=== PATIENT | male | born 1950 | race Caucasian/White ===

== ENCOUNTER 2016-05-31 10:23 | Outpatient (CLI) | payer MEDICARE, OTHER | END 2016-05-31 10:24 | disposition home or self-care (01) | DX: I69.959 Hemiplegia and hemiparesis following unspecified cerebrovascular disease affecting unspecified side (principal); I10 Essential (primary) hypertension; E78.5 Hyperlipidemia, unspecified ==

== ENCOUNTER 2017-09-15 07:11 | Outpatient (CLI) | payer MEDICARE, OTHER ==
[2017-09-15 13:01] LABS: BASOPHILS # (AUTO) 0.1 10^3/uL (0.0-0.1); BASOPHILS % (AUTO) 0.6 %; EOSINOPHILS # (AUTO) 0.1 10^3/uL (0.0-0.7); EOSINOPHILS % (AUTO) 1.5 %; HGB - HEMOGLOBIN 15.6 g/dL (14.0-18.0); LYMPHOCYTES # (AUTO) 2.4 10^3/uL (1.5-3.5); LYMPHOCYTES % (AUTO) 30.2 %; MEAN CORPUSCULAR HEMOGLOBIN 32.2 pg (27.0-31.0); MEAN CORPUSCULAR HGB CONC 33.4 g/dL (32.0-36.0); MEAN CORPUSCULAR VOLUME 96.4 fL (80.0-94.0); MEAN PLATELET VOLUME 8.7 fL (7.4-11.4); MONOCYTES # (AUTO) 0.7 10^3/uL (0.0-1.0); MONOCYTES % (AUTO) 8.5 %; NEUTROPHILS # (AUTO) 4.8 10^3/uL (1.5-6.6); NEUTROPHILS % (AUTO) 59.2 %; PLT - PLATELET COUNT 242 10^3/uL (130-450); RED BLOOD COUNT 4.85 10^6/uL (4.70-6.10); RED CELL DISTRIBUTION WIDTH 13.6 % (12.0-15.0); WHITE BLOOD COUNT 8.1 x10^3/uL (4.8-10.8)
[2017-09-15 13:42] LABS: ALBUMIN 3.9 g/dL (3.2-5.5); ALBUMIN/GLOBULIN RATIO 1.3 (1.0-2.2); ALKALINE PHOSPHATASE 40 IU/L (42-121); ALT ALANINE AMINOTRANSFERASE 19 IU/L (10-60); AST ASPARTATE AMINOTRANSFERASE 19 IU/L (10-42); BILIRUBIN,TOTAL 0.5 mg/dL (0.2-1.0); BUN - BLOOD UREA NITROGEN 12 mg/dL (6-20); CALCIUM 8.8 mg/dL (8.5-10.3); CARBON DIOXIDE - CO2 27 mmol/L (21-32); CHLORIDE 102 mmol/L (101-111); CHOL/HDL RATIO 4.4 (<5.0); CHOLESTEROL 179 mg/dL; CREATININE 0.9 mg/dL (0.6-1.2); GFR - MDRD 84 (>89); GLUCOSE 113 mg/dL (70-100); HDL CHOLESTEROL 41 mg/dL; LDL CHOLESTEROL,CALCULATED 108 mg/dL; LDL/HDL RATIO 2.6 (<3.6); SODIUM 135 mmol/L (135-145); VLDL CHOLESTEROL 30 mg/dL
== END 2017-09-15 07:12 | disposition home or self-care (01) ==
LOC: LAB.WCP 07:11
PROVIDERS: ATTEND Family Medicine
DX: I10 Essential (primary) hypertension (principal); E87.5 Hyperkalemia; Z12.5 Encounter for screening for malignant neoplasm of prostate
CPT/HCPCS: 36415; 80053; 80061; 85025; G0103; 83721; 84153

== ENCOUNTER 2018-03-23 07:23 | Outpatient (CLI) | payer MEDICARE, OTHER ==
[2018-03-23 12:47] LABS: CALCIUM 8.9 mg/dL (8.5-10.3); CREATININE 0.9 mg/dL (0.6-1.2)
[2018-03-23 13:07] LABS: PSA FREE 0.63 ng/mL (0.16-2.81)
[2018-03-23 13:08] LABS: PSA TOTAL 3.09 ng/mL (0.000-2.000)
== END 2018-03-23 23:59 | disposition home or self-care (01) ==
LOC: LAB.WCP 07:23
PROVIDERS: ATTEND Family Medicine
DX: R97.20 Elevated prostate specific antigen [PSA] (principal); I10 Essential (primary) hypertension
CPT/HCPCS: 36415; 80048; 84153; 84154

== ENCOUNTER 2018-10-09 07:24 | Outpatient (CLI) | payer MEDICARE, OTHER ==
[2018-10-09 13:35] LABS: ALBUMIN/GLOBULIN RATIO 1.3 (1.0-2.2); ALKALINE PHOSPHATASE 49 IU/L (42-121); ALT ALANINE AMINOTRANSFERASE 13 IU/L (10-60); AST ASPARTATE AMINOTRANSFERASE 15 IU/L (10-42); BILIRUBIN,TOTAL 0.6 mg/dL (0.2-1.0); BUN - BLOOD UREA NITROGEN 13 mg/dL (6-20); CALCIUM 9.1 mg/dL (8.5-10.3); CARBON DIOXIDE - CO2 27 mmol/L (21-32); CHLORIDE 105 mmol/L (101-111); CHOL/HDL RATIO 6.3 (<5.0); CHOLESTEROL 265 mg/dL; CREATININE 0.9 mg/dL (0.6-1.2); GFR - MDRD 84 (>89); GLUCOSE 107 mg/dL (70-100); HDL CHOLESTEROL 42 mg/dL; LDL CHOLESTEROL,CALCULATED 181 mg/dL; LDL/HDL RATIO 4.3 (<3.6); SODIUM 143 mmol/L (135-145); VLDL CHOLESTEROL 42 mg/dL
[2018-10-09 13:40] LABS: BASOPHILS % (AUTO) 0.4 %; EOSINOPHILS # (AUTO) 0.2 10^3/uL (0.0-0.7); EOSINOPHILS % (AUTO) 2.1 %; HGB - HEMOGLOBIN 15.9 g/dL (14.0-18.0); LYMPHOCYTES # (AUTO) 2.5 10^3/uL (1.5-3.5); MEAN CORPUSCULAR HEMOGLOBIN 31.8 pg (27.0-31.0); MEAN CORPUSCULAR HGB CONC 32.9 g/dL (32.0-36.0); MEAN CORPUSCULAR VOLUME 96.8 fL (80.0-94.0); MEAN PLATELET VOLUME 10.2 fL (7.4-11.4); MONOCYTES # (AUTO) 0.8 10^3/uL (0.0-1.0); MONOCYTES % (AUTO) 9.1 %; NEUTROPHILS # (AUTO) 5.4 10^3/uL (1.5-6.6); NEUTROPHILS % (AUTO) 60.1 %; PLT - PLATELET COUNT 243 10^3/uL (130-450); PSA FREE 0.65 ng/mL (0.16-2.81); RED CELL DISTRIBUTION WIDTH 13.1 % (12.0-15.0)
[2018-10-09 13:41] LABS: PSA TOTAL 3.7 ng/mL (0.000-2.000)
== END 2018-10-09 07:25 | disposition home or self-care (01) ==
LOC: LAB.WCP 07:24
PROVIDERS: ATTEND Family Medicine
DX: I69.854 Hemiplegia and hemiparesis following other cerebrovascular disease affecting left non-dominant side (principal); E78.5 Hyperlipidemia, unspecified; R97.20 Elevated prostate specific antigen [PSA]; I10 Essential (primary) hypertension
CPT/HCPCS: 36415; 80053; 80061; 83721; 84153; 84154; 84443; 85025

== ENCOUNTER 2018-11-19 10:01 | Outpatient (CLI) | payer MEDICARE, OTHER ==
--- NOTE | 2018-11-20 | XRAY Report ---
Reason: HYPERTENSION Procedure Date: 11/19/2018 Accession Number: [id number] / [id number] Procedure: XR - Chest 2 View X-Ray CPT Code: 53086 FULL RESULT: EXAM: CHEST RADIOGRAPHY EXAM DATE: 11/19/2018 11:31 AM. CLINICAL HISTORY: HYPERTENSION. Preoperative. COMPARISON: CHEST 1 VIEW 03/07/2013 8:28 AM. TECHNIQUE: 2 views. FINDINGS: Lungs/Pleura: 6 mm dense right upper lobe pulmonary nodule again noted. Right midlung nodule measuring 1.9 cm, appears partially calcified at least. These appear similar to the prior from 2012, suspect calcified nodules. No consolidation, pleural effusion or pneumothorax. Hyperinflated lungs. Mediastinum: Heart and mediastinal contours are unremarkable. IMPRESSION: No acute findings are seen. Chronic findings. See above. RADIA
== END 2018-11-19 10:02 | disposition home or self-care (01) ==
LOC: DI 10:01
PROVIDERS: ATTEND Surgery
DX: Z01.818 Encounter for other preprocedural examination (principal); K40.20 Bilateral inguinal hernia, without obstruction or gangrene, not specified as recurrent
CPT/HCPCS: 71046; 93005

== ENCOUNTER 2018-11-19 10:05 | Outpatient (CLI) | payer MEDICARE, OTHER | END 2018-11-19 10:06 | disposition home or self-care (01) | LOC: RT 10:05 | PROVIDERS: ATTEND Surgery | DX: Z53.9 Procedure and treatment not carried out, unspecified reason (principal) ==

== ENCOUNTER 2018-11-20 08:59 | Day surgery (SDC) | payer MEDICARE, OTHER ==
[~2018-11-20 08:59] MED LIST: CEFAZOLIN SODIUM IN 0.9 % NACL 2 GM/100 ML BAG IV ONE
[2018-11-20] MEDS ORDERED: LACTATED RINGERS 1,000 ML IV ONE ×2 (09:04→12:23)
--- NOTE | 2018-11-20 09:56 | ANESTHESIA ---
Pre-Anesthesia VS, & Labs - Diagnosis B inguinal hernias - Procedure B inguinal hernia repairs Vital Signs: Temp Pulse Resp BP Pulse Ox 36.1 C L 103 H 65 H 152/94 H 94 11/20/18 09:09 11/20/18 09:09 11/20/18 09:09 11/20/18 09:09 11/20/18 09:09 Height 5 ft 8 in Weight (kg) 65 kg Body Mass Index 20.2 - NPO >8 hours Last Fluid Intake: 4oz coffee at 0300 - Lab Results Lab results reviewed: Yes Home Medications and Allergies Home Medications: Ambulatory Orders Amlodipine Besylate 10 mg PO DAILY 11/19/18 Aspirin [Aspirin EC] 81 mg PO DAILY 11/19/18 Clopidogrel Bisulfate [Clopidogrel] 75 mg PO DAILY 11/19/18 EPINEPHrine [Epinephrine] 0.3 mg IJ ONCE PRN 11/19/18 Lisinopril 40 mg PO DAILY 11/19/18 Tamsulosin HCl [Flomax] 0.4 mg PO DAILY 11/19/18 Hydrochlorothiazide 12.5 mg PO DAILY 03/07/13 Metoprolol Tartrate 50 mg PO BID 03/07/13 Pravastatin Sodium 20 mg PO QPM 03/07/13 Amlodipine Besylate 10 mg PO DAILY 11/19/18 Aspirin [Aspirin EC] 81 mg PO DAILY 11/19/18 Clopidogrel Bisulfate [Clopidogrel] 75 mg PO DAILY 11/19/18 EPINEPHrine [Epinephrine] 0.3 mg IJ ONCE PRN 11/19/18 Lisinopril 40 mg PO DAILY 11/19/18 Tamsulosin HCl [Flomax] 0.4 mg PO DAILY 11/19/18 Allergies/Adverse Reactions: Allergies Allergy/AdvReac Type Severity Reaction Status Date / Time venom-honey bee Allergy Anaphylaxis Unverified 11/19/18 12:01 [bee venom (honey bee)] simvastatin AdvReac Cramps Verified 11/19/18 12:02 Anes History & Medical History - Anesthetic History Anesthesia Complications: reports: No previous complications Family history of Anesthesia Complications: Denies Family history of Malignant Hyperthermia: Denies - Medical History Cardiovascular: reports: Hypertension, High cholesterol Pulmonary: reports: None Gastrointestinal: reports: None Urinary: reports: Benign prostate hypertrophy Musculoskeletal: reports: Osteoarthritis Endocrine/Autoimmune: reports: None Blood Disorders: reports: None Skin: reports: Other Smoking Status: Current every day smoker Psychosocial: reports: No issues indicated - Surgical History Eyes Ears Nose Throat (EENT): Cataracts, Other (strabismus at 3 years old) Dermatologic: Skin cancer surgery Results - EKG Results EKG Comparison: Reviewed EKG (SB@55, no ST changes noted) Exam General: Alert, Oriented x3, Cooperative Dental: Poor dentition (several missing, decayed. none loose per pt) Mouth Opening: Greater than 4 Fingerbreadths Neck Mobility: Normal Mallampati classification: I Thyromental Distance: 4-6 cm Respiratory: Lungs clear, Normal breath sounds, No respiratory distress, No accessory muscle use Cardiovascular: Regular rate Neurological: Normal speech Mental/Cognitive Status: Alert/Oriented X3, Normal for patient Cognitive Status: Within normal limits Plan Anesthesia Type: General Consent for Procedure(s) Verified and Reviewed: Yes Code Status: Attempt Resuscitation ASA classification: 2-Mild systemic disease Is this case an emergency?: No
[2018-11-20] MEDS ORDERED: LIDOCAINE MPF 1%-EPI 1:200000 30 ML VIAL ONE (11:01)
[2018-11-20] MEDS ORDERED: ceFAZolin 1 GM VIAL ONE (11:02)
[2018-11-20] MEDS ORDERED: BUPIVACAINE 0.5% PF 10 ML VIAL ONE (11:02)
--- NOTE | 2018-11-20 12:47 | OPERATIVE REPORT ---
Operative Report - General Planned Procedure: Bilateral Inguinal Hernia Repairs Pre-Op Diagnosis: Bilateral Inguinal Hernias Procedure Performed: Bilateral Inguinal Hernia Repairs with PHS mesh implant. Post Op Diagnosis: Bilateral Inguinal Hernias - Procedure Note Primary Surgeon: Karel Anesthesia Provider: DANIEL Duran Anesthesia Technique: General LMA, Local Pathology: None Estimated Blood Loss (mL): 10 Indications: Bilateral painful inguinal hernias Findings: Moderate direct hernia on the left Large pantaloon hernia on the right Complications: none apparent - Other Other Information/Narrative: After obtaining informed consent, the patient is brought to the operating room and placed in the supine position on the operating table. All elements of the perioperative safety checklist were observed.Following successful induction of general anesthesia, the abdomen and groins were prepped and draped in the standard surgical fashion. A timeout was held per NVOAP protocol. We began by performing an ilioinguinal nerve block on the right. This was done by infiltrating a mixture of local anesthetics just medial to the anterior superior iliac spine. We continued by identifying and the convenient site for an incision in the right lower quadrant and anesthetizing this area with local anesthetics as well.An incision was created here and carried down through the skin and subcutaneous tissue. Ranjit's fascia was incised to reveal the fascia of the external oblique aponeurosis. The aponeurosis was opened in the direction of its fibers and the leaves reflected laterally. The ilioinguinal nerve was identified as well as the spermatic cord and associated hernia sac. The hernia sac was carefully freed from the spermatic cord and reduced back into the abdominal cavity. The hernia itself was lateral to the inferior epigastric vessels.An incision was created here and carried down through the skin and subcutaneous tissue. Ranjit's fascia was incised to reveal the fascia of the external oblique aponeurosis. The aponeurosis was opened in the direction of its fibers and the leaves reflected laterally. The ilioinguinal nerve was identified as well as the spermatic cord and associated hernia sac. The hernia sac was carefully freed from the spermatic cord and reduced back into the abdominal cavity. The hernia itself was lateral to the inferior epigastric ve ssels.We elected to repair the defect using a large Prolene hernia system mesh implant. This was soaked in Ancef containing solution and deployed into the defect per top former's directions. The posterior leaflet was straightened and flattened in the preperitoneal space. The overlying leaflet was then tacked to the pubic tubercle. A slit was created in the medial aspect of the overlying leaflet for placement of the spermatic cord. We were careful to be sure there was no traction or constriction of the cord structures<The wound was checked for hemostasis and irrigated with antibiotic solution. The leaflets of the external oblique aponeurosis were then closed with Vicryl suture Ranjit's fascia was closed with Vicryl suture and Monocryl stitches were placed in the skin. We continued the procedure on the left. We began by performing an ilioinguinal nerve block. This was done by infiltrating a mixture of local anesthetics just medial to the anterior superior iliac spine. We continued by identifying and the convenient site for an incision in the left lower quadrant and anesthetizing this area with local anesthetics as well. An incision was created here and carried down through the skin and subcutaneous tissue. Ranjit's fascia was incised to reveal the fascia of the external oblique aponeurosis. The aponeurosis was opened in the direction of its fibers and the leaves reflected laterally. The ilioinguinal nerve was identified as well as the spermatic cord and associated hernia sac. The hernia sac was carefully freed from the spermatic cord and reduced back into the abdominal cavity. The hernia sac was medial to the inferior epigastric vessels. We elected to repair the defect using a large Prolene hernia system mesh implant. This was soaked in Ancef containing solution and deployed into the defect per top former's directions. The posterior leaflet was straightened and flattened in the preperitoneal space. The overlying leaflet was then tacked to the pubic tubercle. A slit was created in the medial aspect of the overlying leaflet for placement of the spermatic cord. We were careful to be sure there was no traction or constriction of the cord structures<The wound was checked for hemostasis and irrigated with antibiotic solution. The leaflets of the external oblique aponeurosis were then closed with Vicryl suture Ranjti's fascia was closed with Vicryl suture and Monocryl stitches were placed in the skin. Both skin incisions were dressed with Dermabond.All sponge, needle, and instrument counts were correct at the conclusion of the case. The patient was allowed awaken from anesthesia without difficulty and taken to the postanesthesia care unit in good condition.
[2018-11-20] MEDS ORDERED: oxyCODONE 5 MG TABLET PO PRN (13:01)
[2018-11-20] MEDS ORDERED: HYDROmorphone 0.5 MG/0.5 ML SYRINGE IVP PRN (13:01)
[2018-11-20] MEDS ORDERED: ONDANSETRON 4 MG/2 ML VIAL IVP PRN (13:01)
[2018-11-20 13:57] VITALS: BP 136/78
== END 2018-11-20 09:00 | disposition home or self-care (01) ==
LOC: SDS 08:59
PROVIDERS: ATTEND Surgery
PROC: 0YUA0JZ Supplement Bilateral Inguinal Region with Synthetic Substitute, Open Approach (ICD-10-PCS; principal; 2018-11-20 10:15)
DX: K40.20 Bilateral inguinal hernia, without obstruction or gangrene, not specified as recurrent (principal); I69.354 Hemiplegia and hemiparesis following cerebral infarction affecting left non-dominant side; I69.391 Dysphagia following cerebral infarction; R13.10 Dysphagia, unspecified; I10 Essential (primary) hypertension; Z79.899 Other long term (current) drug therapy; Z79.82 Long term (current) use of aspirin; Z87.891 Personal history of nicotine dependence
CPT/HCPCS: 49505; C1781; J0690; J7120

== ENCOUNTER 2019-03-28 08:00 | Outpatient (CLI) | payer MEDICARE, OTHER | END 2019-03-28 23:59 | disposition home or self-care (01) | LOC: LAB.WCP 08:00 | PROVIDERS: ATTEND Family Medicine | DX: R97.20 Elevated prostate specific antigen [PSA] (principal) | CPT/HCPCS: 36415; 84153 ==

== ENCOUNTER 2020-03-10 08:00 | Outpatient (CLI) | payer MEDICARE, OTHER ==
[2020-03-10 18:37] LABS: BASOPHILS # (AUTO) 0.1 10^3/uL (0.0-0.1); BASOPHILS % (AUTO) 0.5 %; EOSINOPHILS # (AUTO) 0.2 10^3/uL (0.0-0.7); EOSINOPHILS % (AUTO) 1.6 %; HGB - HEMOGLOBIN 15.6 g/dL (14.0-18.0); LYMPHOCYTES # (AUTO) 2.5 10^3/uL (1.5-3.5); MEAN CORPUSCULAR HGB CONC 31.6 g/dL (32.0-36.0); MEAN PLATELET VOLUME 10.4 fL (7.4-11.4); MONOCYTES # (AUTO) 0.8 10^3/uL (0.0-1.0); MONOCYTES % (AUTO) 8.5 %; NEUTROPHILS # (AUTO) 5.8 10^3/uL (1.5-6.6); PLT - PLATELET COUNT 239 10^3/uL (130-450); RED BLOOD COUNT 5.04 10^6/uL (4.70-6.10); RED CELL DISTRIBUTION WIDTH 12.8 % (12.0-15.0); WHITE BLOOD COUNT 9.3 x10^3/uL (4.8-10.8)
[2020-03-10 18:56] LABS: ALBUMIN 4.1 g/dL (3.2-5.5); ALBUMIN/GLOBULIN RATIO 1.4 (1.0-2.2); ALKALINE PHOSPHATASE 46 IU/L (42-121); ALT ALANINE AMINOTRANSFERASE 14 IU/L (10-60); AST ASPARTATE AMINOTRANSFERASE 14 IU/L (10-42); BILIRUBIN,TOTAL 0.7 mg/dL (0.2-1.0); BUN - BLOOD UREA NITROGEN 17 mg/dL (6-20); CALCIUM 9.4 mg/dL (8.5-10.3); CARBON DIOXIDE - CO2 27 mmol/L (21-32); CHLORIDE 103 mmol/L (101-111); CHOL/HDL RATIO 4.4 (<5.0); CHOLESTEROL 190 mg/dL; CREATININE 0.9 mg/dL (0.6-1.2); GLUCOSE 114 mg/dL (70-100); HDL CHOLESTEROL 43 mg/dL; LDL CHOLESTEROL,CALCULATED 120 mg/dL; LDL/HDL RATIO 2.8 (<3.6); SODIUM 141 mmol/L (135-145); VLDL CHOLESTEROL 27 mg/dL
== END 2020-03-10 23:59 | disposition home or self-care (01) ==
LOC: LAB.WCP 08:00
PROVIDERS: ATTEND Nurse Practitioner Family
DX: E78.5 Hyperlipidemia, unspecified (principal); I10 Essential (primary) hypertension
CPT/HCPCS: 36415; 80053; 80061; 83721; 84443; 85025

== ENCOUNTER 2020-06-08 16:39 | Emergency (ER) | payer MEDICARE, OTHER ==
[2020-06-08] MEDS ORDERED: KETOROLAC 30 MG/ML VIAL IVP STA (17:08)
[2020-06-08 17:22] LABS: BASOPHILS # (AUTO) 0.1 10^3/uL (0.0-0.1); BASOPHILS % (AUTO) 0.4 %; EOSINOPHILS # (AUTO) 0.1 10^3/uL (0.0-0.7); EOSINOPHILS % (AUTO) 0.7 %; HCT - HEMATOCRIT 49.2 % (42.0-52.0); HGB - HEMOGLOBIN 16.4 g/dL (14.0-18.0); LYMPHOCYTES # (AUTO) 2.4 10^3/uL (1.5-3.5); LYMPHOCYTES % (AUTO) 17.6 %; MEAN CORPUSCULAR HEMOGLOBIN 31.3 pg (27.0-31.0); MEAN CORPUSCULAR HGB CONC 33.3 g/dL (32.0-36.0); MEAN CORPUSCULAR VOLUME 93.9 fL (80.0-94.0); MONOCYTES # (AUTO) 1.1 10^3/uL (0.0-1.0); MONOCYTES % (AUTO) 7.8 %; NEUTROPHILS # (AUTO) 9.8 10^3/uL (1.5-6.6); NEUTROPHILS % (AUTO) 73.1 %; PLT - PLATELET COUNT 285 10^3/uL (130-450); RED BLOOD COUNT 5.24 10^6/uL (4.70-6.10); RED CELL DISTRIBUTION WIDTH 12.4 % (12.0-15.0); WHITE BLOOD COUNT 13.4 x10^3/uL (4.8-10.8)
[2020-06-08 17:38] LABS: ALBUMIN/GLOBULIN RATIO 1.1 (1.0-2.2); BILIRUBIN,TOTAL 0.4 mg/dL (0.2-1.0); POTASSIUM 3.5 mmol/L (3.5-5.0); TOTAL PROTEIN 7.6 g/dL (6.7-8.2)
--- NOTE | 2020-06-08 17:46 | ED Physician Documentation ---
History of Present Illness - Stated complaint Stated Complaint: LT SHOULDER PAIN - Chief complaint Chief Complaint: General - History obtained from History obtained from: Patient - History of Present Illness Timing: Today Pain level max: 5 Pain level now: 5 - Additonal information Additional information: 70-year-old male with a history of a left-sided CVA and residual left-sided deficits states that he has been working in the yard lately. Developed left- sided chest/shoulder pain 2 to 3 days ago. Has been constant since that time. He states it feels like a muscle spasm. Nothing really makes it better or worse. No shortness of breath. No vomiting. No headache. No trauma. Patient points to the L side of the chest wall as the site of his pain, near the L axilla. Review of Systems Ten Systems: 10 systems reviewed and negative Constitutional: denies: Fever, Chills Ears: denies: Ear pain Nose: denies: Rhinorrhea / runny nose, Congestion Respiratory: denies: Cough GI: denies: Nausea, Vomiting, Diarrhea Skin: denies: Rash Musculoskeletal: denies: Neck pain, Back pain Neurologic: denies: Focal weakness, Numbness, Headache PD PAST MEDICAL HISTORY - Past Medical History Past Medical History: Yes Cardiovascular: Hypertension Endocrine/Autoimmune: None GI: None : None HEENT: Other Psych: None Musculoskeletal: None Derm: Other - Past Surgical History Past Surgical History: Yes HEENT: Cataracts, Other - Present Medications Home Medications: Ambulatory Orders Medication Instructions Recorded Confirmed Hydrochlorothiazide 12.5 mg PO DAILY 03/07/13 06/08/20 Metoprolol Tartrate 50 mg PO BID 03/07/13 06/08/20 Pravastatin Sodium 20 mg PO QPM 03/07/13 06/08/20 Amlodipine Besylate 10 mg PO DAILY 11/19/18 06/08/20 Aspirin [Aspirin EC] 81 mg PO DAILY 11/19/18 06/08/20 Clopidogrel Bisulfate [Clopidogrel] 75 mg PO DAILY 11/19/18 06/08/20 EPINEPHrine [Epinephrine] 0.3 mg IJ ONCE PRN 11/19/18 06/08/20 Tamsulosin HCl [Flomax] 0.4 mg PO DAILY 11/19/18 06/08/20 lisinopriL [Lisinopril] 40 mg PO DAILY 11/19/18 06/08/20 Ondansetron Odt [Zofran] 4 mg TL Q6H PRN #10 tablet 11/20/18 06/08/20 HYDROcod/ACETAM 5/325 [[place]atfield 5/325] 1 - 2 ea PO Q6H PRN #14 tablet 06/08/20 Valacyclovir HCl [Valtrex] 1,000 mg PO TID #21 tablet 06/08/20 - Allergies Allergies/Adverse Reactions: Allergies Allergy/AdvReac Type Severity Reaction Status Date / Time venom-honey bee Allergy Anaphylaxis Unverified 06/08/20 16:47 [bee venom (honey bee)] simvastatin AdvReac Cramps Verified 06/08/20 16:47 - Social History Does the pt smoke?: Yes Smoking Status: Current every day smoker Does the pt drink ETOH?: Yes Does the pt have substance abuse?: No PD ED PE NORMAL - Vitals Vital signs reviewed: Yes - General General: Alert and oriented X 3, No acute distress, Well developed/nourished - HEENT HEENT: PERRL, Moist mucous membranes - Neck Neck: Supple, no meningeal sign - Cardiac Cardiac: RRR, Strong equal pulses - Respiratory Respiratory: No respiratory distress, Clear bilaterally - Abdomen Abdomen: Soft, Non tender, Non distended - Derm Derm: Warm and dry, Other (faint rash to the L upper back, dermatomal) - Extremities Extremities: Other (L shoulder - normal ROM. no pain. NVI. No rib cage tenderness. No rash. no swelling. ) - Neuro Neuro: Alert and oriented X 3 - Psych Psych: Normal mood, Normal affect Results - Vitals Vitals: Vital Signs - 24 hr 06/08/20 06/08/20 06/08/20 16:44 18:08 18:25 Temperature 36.7 C Heart Rate 105 H 106 H 101 H Respiratory 20 16 16 Rate Blood Pressure 156/98 H 132/93 H 135/86 H O2 Saturation 99 97 98 Oxygen O2 Source Room air - EKG (time done) 1731 Rate: Rate (enter#) (100) Rhythm: Sinus tachycardia Baker: Normal Intervals: Normal DE QRS: Normal Ischemia: Normal ST segments - Labs Labs: Laboratory Tests 06/08/20 06/08/20 06/08/20 17:15 17:15 17:15 WBC 13.4 H RBC 5.24 Hgb 16.4 Hct 49.2 MCV 93.9 MCH 31.3 H MCHC 33.3 RDW 12.4 Plt Count 285 MPV 9.0 Neut # (Auto) 9.8 H Lymph # (Auto) 2.4 [place] # (Auto) 1.1 H Eos # (Auto) 0.1 Baso # (Auto) 0.1 Absolute Nucleated RBC 0.00 Nucleated RBC % 0.0 Sodium 134 L Potassium 3.5 Chloride 98 L Carbon Dioxide 24 Anion Gap 12.0 BUN 15 Creatinine 1.0 Estimated GFR (MDRD) 74 L Glucose 131 H Calcium 9.0 Total Bilirubin 0.4 AST 16 ALT 12 Alkaline Phosphatase 62 Troponin I High Sens 4.7 Total Protein 7.6 Albumin 4.0 Globulin 3.6 Albumin/Globulin Ratio 1.1 Lipase 90 H - Rads (name of study) cxr Radiology: Prelim report reviewed, EMP read contemporaneously, See rad report (No acute findings) L shoulder xray Radiology: Prelim report reviewed, EMP read contemporaneously, See rad report (No acute findings) PD MEDICAL DECISION MAKING - ED course Complexity details: reviewed results, re-evaluated patient, considered differential (No ST elevation FL, no aortic dissection, no PE, no tension pneumothorax, no aortic aneurysm), d/w patient ED course: 70-year-old male presents to the emergency department today with left lateral chest wall discomfort and upper back discomfort. Described as shoulder pain but no pain with range of motion of the shoulder. Does have a light rash. Possible shingles? No evidence of acute coronary syndrome. No PE. We will place on valacyclovir and have him follow-up with his doctor. Placed on pain medication as well. Patient counseled regarding signs and symptoms for which I believe and urgent re-evaluation would be necessary. Patient with good understanding of and agreement to plan and is comfortable going home at this time This document was made in part using voice recognition software. While efforts are made to proofread this document, sound alike and grammatical errors may occur. Departure - Departure Disposition: 01 Home, Self Care Clinical Impression: Chest wall pain Shingles Qualifiers: Herpes zoster complications: without complications Qualified Code(s): B02.9 - Zoster without complications Condition: Good Instructions: ED Shingles Follow-Up: TORY KERR, MSN, FRANCHISE BROKER [Primary Care Provider] - Within 1 week Prescriptions: HYDROcod/ACETAM 5/325 [[place]field 5/325] 1 - 2 ea PO Q6H PRN #14 tablet PRN Reason: Pain Valacyclovir HCl [Valtrex] 1,000 mg PO TID #21 tablet Comments: Your symptoms today are concerning for possible shingles. We will start you on an antiviral medication. We will also prescribe pain medication for you. Follow-up with your doctor for further care. Return if you worsen. Do not drink alcohol or drive while on narcotic pain medicine. Note that many narcotic pain relievers also contain tylenol/acetaminophen. Please ensure that your total dose of acetaminophen from all sources does not exceed 3 grams (3000mg) per day. You may constipated on this medication, take a stool softener such as "Colace" twice a day while you are on it. Also recommend a zdyj-rfi-dihirfm laxative such as senna or MiraLAX any day that you do not have a bowel movement. If you received narcotic pain medication in the emergency department, do not drive or operate machinery for the next 24 hours. Discharge Date/Time: 06/08/20 18:25
--- NOTE | 2020-06-08 17:48 | XRAY Report ---
PROCEDURE: Chest 1 View X-Ray INDICATIONS: Chest Pain TECHNIQUE: One view of the chest was acquired. COMPARISON: CXR 11/19/2018, 03/07/2013. CT KUB 02/08/2016. FINDINGS: The patient is rotated. Surgical changes and devices: None. Lungs and pleura: No pleural effusions or pneumothorax. No consolidation. Nodular opacity in the rig ht midlung field appears stable compared to 2013. Prominent pulmonary markings. Emphysematous change. Mediastinum: Mediastinal contours appear normal. Heart size is normal. Bones and chest wall: No suspicious bony lesions. Overlying soft tissues appear unremarkable. IMPRESSION: No consolidation or definite acute cardiopulmonary abnormality. Stable nodular opacity in the right midlung field since 2012 suggesting a benign etiology. Emphysematous change. Reviewed by: Garcia Flowers MD on 06/08/2020 4:47 PM MEGAN Approved by: Garcia Flowers MD on 06/08/2020 4:47 PM [id number] Station ID: [id number]
--- NOTE | 2020-06-08 17:48 | XRAY Report ---
PROCEDURE: Shoulder 3 View LT INDICATIONS: L shoulder pain TECHNIQUE: 3 views of the shoulder were acquired. COMPARISON: None. FINDINGS: Bones: No fractures or dislocations. Mild acromioclavicular joint osteoarthritis and moderate glenoh umeral joint osteoarthritis is seen. No suspicious bony lesions. Visualized ribs appear intact. Soft tissues: No suspicious soft tissue calcifications. IMPRESSION: Mild to moderate left shoulder joint osteophyte is. No fracture or dislocation. Reviewed by: Nehemias Mcfadden MD on 06/08/2020 5:47 PM PDT Approved by: Nehemias Mcfadden MD on 06/08/2020 5:47 PM PDT Station ID: [id number]
[2020-06-08] MEDS ORDERED: HYDROcod/ACETAM 5/325 MG TABLET PO STA (18:18)
[2020-06-08] MEDS ORDERED: valACYclovir 500 MG TABLET PO STA (18:18)
[2020-06-08 18:33] VITALS: BP 135/86
== END 2020-06-08 18:25 | disposition home or self-care (01) ==
LOC: ED 16:39
DX: R07.89 Other chest pain (principal); B02.9 Zoster without complications; I10 Essential (primary) hypertension; F17.200 Nicotine dependence, unspecified, uncomplicated; R00.0 Tachycardia, unspecified
CPT/HCPCS: 36415; 71045; 73030; 80053; 83690; 84484; 85025; 93005; 96374; 99284; A9270

== ENCOUNTER 2020-06-16 11:42 | Outpatient (CLI) | payer MEDICARE, OTHER ==
--- NOTE | 2020-06-16 12:40 | XRAY Report ---
PROCEDURE: Lumbar Spine Complete INDICATIONS: LUMBAR RADIULOPATHY, LEFT TECHNIQUE: 5 views of the lumbar spine were acquired. COMPARISON: None FINDINGS: Bones: 5 [id number] vertebrae are present. There is there is trace retrolisthesis of L2 on L3, L3 on L4. Moderate to severe multilevel disc space narrowing is present most notable from L3-4 throu gh L5-S1. Severe foraminal narrowing is noted L5-S1, L4-5 and L3-4.. No vertebral body compression f ractures. No suspicious bony lesions. Soft tissues: Overlying bowel gas pattern is normal. No suspicious soft tissue calcifications. IMPRESSION: Multilevel degenerative changes most notable from L3-4 through L5-S1. As clinically jessica cated, further evaluation with MRI may be obtained. Reviewed by: Ninfa Leiva MD on 06/16/2020 12:39 PM PDT Approved by: Ninfa Leiva MD on 06/16/2020 12:39 PM PDT Station ID: [id number]
== END 2020-06-16 11:43 | disposition home or self-care (01) ==
LOC: DI.N 11:42
PROVIDERS: ATTEND Family Medicine
DX: M43.16 Spondylolisthesis, lumbar region (principal); M51.36 Other intervertebral disc degeneration, lumbar region; M48.061 Spinal stenosis, lumbar region without neurogenic claudication; M51.37 Other intervertebral disc degeneration, lumbosacral region; M48.07 Spinal stenosis, lumbosacral region

== ENCOUNTER 2020-07-09 08:53 | Emergency (ER) | payer MEDICARE, OTHER ==
--- OUTSIDE RECORDS SUMMARY | 2020-07-09 08:57 | EXTERNAL MEDICAL SUMMARY RPT | Continuity of Care Document ---
:1950 Demographics Phone Unavailable Preferred Language Unknown Marital Status Unknown L[employer] Affiliation Unknown Race Unknown Ethnic Group Unknown Author Organization [facility] Address [address] [place] [address] Phone Social History date description facility [phone]
--- OUTSIDE RECORDS SUMMARY | 2020-07-09 09:02 | EXTERNAL MEDICAL SUMMARY RPT | Continuity of Care Document ---
:1950 Demographics Phone Unavailable Preferred Language Unknown Marital Status Unknown Restoration Affiliation Unknown Race Unknown Ethnic Group Unknown Author Organization [facility] Address [address] [place] [address] Phone Social History date description facility [phone]
--- NOTE | 2020-07-09 09:04 | ED Physician Documentation ---
History of Present Illness - Stated complaint Stated Complaint: LT SIDE PX - History obtained from History obtained from: Patient - Additonal information Additional information: 70-year-old gentleman with history of CVA with left-sided deficits has been having back issues and trouble with the left leg for 6 months. He had an x-ray of the lumbar spine a few weeks ago demonstrating multilevel degenerative changes most notable from L3-4 through L5-S1. Yesterday he went to [place] and had to go up and down a very steep driveway and now has severe left thigh pain. There is no specific injury. PD PAST MEDICAL HISTORY - Past Medical History Cardiovascular: Hypertension Endocrine/Autoimmune: None GI: None : None HEENT: Other Psych: None Musculoskeletal: None Derm: Other - Past Surgical History Past Surgical History: Yes HEENT: Cataracts, Other - Present Medications Home Medications: Ambulatory Orders Medication Instructions Recorded Confirmed Hydrochlorothiazide 12.5 mg PO DAILY 03/07/13 07/09/20 Metoprolol Tartrate 50 mg PO DAILY 03/07/13 07/09/20 Pravastatin Sodium 20 mg PO QPM 03/07/13 07/09/20 Amlodipine Besylate 10 mg PO DAILY 11/19/18 07/09/20 Aspirin [Aspirin EC] 81 mg PO DAILY 11/19/18 07/09/20 Clopidogrel Bisulfate [Clopidogrel] 75 mg PO DAILY 11/19/18 07/09/20 EPINEPHrine [Epinephrine] 0.3 mg IJ ONCE PRN 11/19/18 07/09/20 Tamsulosin HCl [Flomax] 0.4 mg PO DAILY 11/19/18 07/09/20 lisinopriL [Lisinopril] 40 mg PO DAILY 11/19/18 07/09/20 HYDROcod/ACETAM 5/325 [[place] 5/325] 1 - 2 ea PO Q6H PRN #14 tablet 06/08/20 07/09/20 Gabapentin [Neurontin] 300 mg PO TID #60 cap 07/09/20 predniSONE [Deltasone] 20 mg PO [id number] #21 tab 07/09/20 - Allergies Allergies/Adverse Reactions: Allergies Allergy/AdvReac Type Severity Reaction Status Date / Time venom-honey bee Allergy Anaphylaxis Verified 07/09/20 09:19 [bee venom (honey bee)] simvastatin AdvReac Cramps Verified 07/09/20 09:19 - Social History Does the pt smoke?: Yes Smoking Status: Current every day smoker Does the pt drink ETOH?: Yes Does the pt have substance abuse?: No PD ED PE NORMAL - Vitals Vital signs reviewed: Yes - General General: Alert and oriented X 3, No acute distress - Back Back: No spinal TTP - Extremities Extremities: No deformity, No tenderness to palpate, Normal ROM s pain, Other (No visible abnormality of the left thigh, its not tender. Full range of motion of the hip and the knee. Pedal pulses on the left are diminished but palpable and his legs are symmetrically warm with good cap refill. He has normal flexion and extension at both ankles and knees. ) - Neuro Neuro: Alert and oriented X 3, Normal speech Results - Vitals Vitals: Vital Signs - 24 hr 07/09/20 07/09/20 08:53 09:30 Temperature 36.6 C Heart Rate 110 H 98 Respiratory 16 16 Rate Blood Pressure 140/97 H 141/85 H O2 Saturation 97 95 Oxygen O2 Source Room air - Labs Labs: Laboratory Tests 07/09/20 07/09/20 09:29 09:29 WBC 12.5 H RBC 4.89 Hgb 15.4 Hct 45.1 MCV 92.2 MCH 31.5 H MCHC 34.1 RDW 13.2 Plt Count 277 MPV 9.0 Neut # (Auto) 10.1 H Lymph # (Auto) 1.5 [place] # (Auto) 0.8 Eos # (Auto) 0.0 Baso # (Auto) 0.1 Absolute Nucleated RBC 0.00 Nucleated RBC % 0.0 Sodium 139 Potassium 3.4 L Chloride 106 Carbon Dioxide 22 Anion Gap 11.0 BUN 16 Creatinine 0.9 Estimated GFR (MDRD) 83 L Glucose 138 H Calcium 9.2 PD MEDICAL DECISION MAKING - ED course ED course: 70-year-old gentleman with subacute to chronic left leg pain, most likely to be referred radicular pain given outpatient testing. That said vascular disease is considered, DVT ultrasound is negative, he has pedal pulses albeit he seems to have some level of peripheral vascular disease but the exam is not consistent with ischemic leg disease, nor is the distribution of his pain being in the thigh only. An x-ray was done to rule out occult malignancy in the bone but x- ray is negative for same. Departure - Departure Disposition: 01 Home, Self Care Clinical Impression: Pain in extremity Qualifiers: Extremity pain location: lower extremity Laterality: left Qualified Code(s): M79.605 - Pain in left leg Condition: Good Record reviewed to determine appropriate education?: Yes Instructions: ED Sciatica Prescriptions: predniSONE [Deltasone] 20 mg PO [id number] #21 tab Gabapentin [Neurontin] 300 mg PO TID #60 cap Comments: Discussed, the testing so far including the recent x-ray, negative ultrasound for blood clots and negative femur x-ray today to me suggest that the pain is most likely referred from a pinched nerve in your back. The gabapentin and prednisone should help with this. Follow-up with Dr. Damon, consider MRI of the lumbar spine. Return if worsening. Do not drink or drive while taking gabapentin.
[2020-07-09 09:35] LABS: BASOPHILS # (AUTO) 0.1 10^3/uL (0.0-0.1); BASOPHILS % (AUTO) 0.4 %; EOSINOPHILS % (AUTO) 0.2 %; HCT - HEMATOCRIT 45.1 % (42.0-52.0); HGB - HEMOGLOBIN 15.4 g/dL (14.0-18.0); LYMPHOCYTES # (AUTO) 1.5 10^3/uL (1.5-3.5); LYMPHOCYTES % (AUTO) 11.7 %; MEAN CORPUSCULAR HEMOGLOBIN 31.5 pg (27.0-31.0); MEAN CORPUSCULAR HGB CONC 34.1 g/dL (32.0-36.0); MEAN CORPUSCULAR VOLUME 92.2 fL (80.0-94.0); MONOCYTES # (AUTO) 0.8 10^3/uL (0.0-1.0); MONOCYTES % (AUTO) 6.3 %; NEUTROPHILS # (AUTO) 10.1 10^3/uL (1.5-6.6); NEUTROPHILS % (AUTO) 81.2 %; PLT - PLATELET COUNT 277 10^3/uL (130-450); RED BLOOD COUNT 4.89 10^6/uL (4.70-6.10); RED CELL DISTRIBUTION WIDTH 13.2 % (12.0-15.0); WHITE BLOOD COUNT 12.5 x10^3/uL (4.8-10.8)
--- NOTE | 2020-07-09 09:41 | XRAY Report ---
PROCEDURE: Femur 2V LT INDICATIONS: thigh pain TECHNIQUE: 2 views of the femur were acquired. COMPARISON: None. FINDINGS: Bones: No fractures or dislocations. No suspicious bony lesions. Soft tissues: No suspicious soft tissue calcifications or masses. Atherosclerotic calcifications not ed in the left lower extremity. IMPRESSION: No fracture. No acute osseous lesion. If there persistent symptoms or continued clinical concern for pathology, then repeat plain film radiographs (7-10 days) or advanced imaging (CT, MR, bone scan) karen uld be considered for further evaluation. Reviewed by: Gloria Mathew MD, PhD on 07/09/2020 9:39 AM PDT Approved by: Gloria Mathew MD, PhD on 07/09/2020 9:39 AM PDT Station ID: [id number]
[2020-07-09 09:43] LABS: CALCIUM 9.2 mg/dL (8.5-10.3); CREATININE 0.9 mg/dL (0.6-1.2); POTASSIUM 3.4 mmol/L (3.5-5.0)
[2020-07-09 10:02] VITALS: BP 134/90
--- NOTE | 2020-07-09 10:12 | Ultrasound Report ---
PROCEDURE: Duplex Ext Veins Left INDICATIONS: leg pain TECHNIQUE: Real-time imaging, as well as color and pulse Doppler interrogation, were performed of the lower extr emity deep veins from the inguinal ligament to the popliteal fossa. COMPARISON: None. FINDINGS: The deep veins are normally compressible, and free of intraluminal thrombus. Color and pu lse Doppler demonstrate normal phasic intraluminal flow. There is normal augmentation response to di stal compression maneuver. IMPRESSION: No evidence of DVT in visualized left lower extremity veins. Reviewed by: Nehemias Mcfadden MD on 07/09/2020 9:11 AM MEGAN Approved by: Nehemias Mcfadden MD on 07/09/2020 9:11 AM MEGAN Station ID: [id number]
== END 2020-07-09 10:15 | disposition home or self-care (01) ==
LOC: ED 08:53
DX: M79.605 Pain in left leg (principal); M47.817 Spondylosis without myelopathy or radiculopathy, lumbosacral region; I69.954 Hemiplegia and hemiparesis following unspecified cerebrovascular disease affecting left non-dominant side; I10 Essential (primary) hypertension; F17.200 Nicotine dependence, unspecified, uncomplicated; Z79.82 Long term (current) use of aspirin
CPT/HCPCS: 36415; 80048; 85025; 99281; 99284

== ENCOUNTER 2020-07-15 16:43 | Outpatient (CLI) | payer MEDICARE, OTHER | END 2020-07-15 16:44 | disposition critical access hospital (66) | LOC: EMS 16:43 | DX: R29.91 Unspecified symptoms and signs involving the musculoskeletal system (principal); M54.5 Low back pain | CPT/HCPCS: A0425; A0429 ==

== ENCOUNTER 2020-07-15 17:07 | Emergency (ER) | payer MEDICARE, OTHER ==
--- NOTE | 2020-07-15 17:36 | ED Physician Documentation ---
History of Present Illness - Stated complaint Stated Complaint: UNABLE TO WALK - Chief complaint Chief Complaint: Neuro - History obtained from History obtained from: Patient - History of Present Illness Timing: How many weeks ago (1) Pain level max: 1 Pain level now: 1 - Additonal information Additional information: Patient is a 70-year-old male who presents to the emergency department stating that he has been unable to walk on the left leg for the past week due to numbness. Is having loss of bladder control as well. No loss of bowel control. Does not recall any injury. He states he had recent x-rays of his lumbar spine that showed degenerative disc disease. Nothing makes this better or worse. He is currently utilizing a wheelchair. Has never been in a wheelchair before. Does have a history of a stroke to the [place] radiata several years ago. No fevers. No chills. Review of Systems Ten Systems: 10 systems reviewed and negative Constitutional: denies: Fever, Chills Ears: denies: Ear pain Nose: denies: Rhinorrhea / runny nose, Congestion Respiratory: denies: Cough GI: denies: Nausea, Vomiting, Diarrhea : reports: Incontinent Skin: denies: Rash Musculoskeletal: reports: Back pain (mild low back). denies: Neck pain Neurologic: denies: Headache PD PAST MEDICAL HISTORY - Past Medical History Cardiovascular: Hypertension Neuro: CVA Endocrine/Autoimmune: None GI: None : None HEENT: Other Psych: None Musculoskeletal: None Derm: Other - Past Surgical History Past Surgical History: Yes HEENT: Cataracts, Other - Present Medications Home Medications: Ambulatory Orders Medication Instructions Recorded Confirmed Hydrochlorothiazide 12.5 mg PO DAILY 03/07/13 07/09/20 Metoprolol Tartrate 50 mg PO DAILY 03/07/13 07/09/20 Pravastatin Sodium 20 mg PO QPM 03/07/13 07/09/20 Amlodipine Besylate 10 mg PO DAILY 11/19/18 07/09/20 Aspirin [Aspirin EC] 81 mg PO DAILY 11/19/18 07/09/20 Clopidogrel Bisulfate [Clopidogrel] 75 mg PO DAILY 11/19/18 07/09/20 EPINEPHrine [Epinephrine] 0.3 mg IJ ONCE PRN 11/19/18 07/09/20 Tamsulosin HCl [Flomax] 0.4 mg PO DAILY 11/19/18 07/09/20 lisinopriL [Lisinopril] 40 mg PO DAILY 11/19/18 07/09/20 HYDROcod/ACETAM 5/325 [[place] 5/325] 1 - 2 ea PO Q6H PRN #14 tablet 06/08/20 07/09/20 Gabapentin [Neurontin] 300 mg PO TID #60 cap 07/09/20 predniSONE [Deltasone] 20 mg PO [id number] #21 tab 07/09/20 - Allergies Allergies/Adverse Reactions: Allergies Allergy/AdvReac Type Severity Reaction Status Date / Time venom-honey bee Allergy Anaphylaxis Verified 07/15/20 17:15 [bee venom (honey bee)] simvastatin AdvReac Cramps Verified 07/15/20 17:15 - Social History Does the pt smoke?: Yes Smoking Status: Current every day smoker Does the pt drink ETOH?: Yes Does the pt have substance abuse?: No PD ED PE NORMAL - Vitals Vital signs reviewed: Yes - General General: Alert and oriented X 3, No acute distress - HEENT HEENT: Moist mucous membranes - Neck Neck: Supple, no meningeal sign - Cardiac Cardiac: RRR, Strong equal pulses - Respiratory Respiratory: No respiratory distress, Clear bilaterally - Abdomen Abdomen: Soft, Non tender, Non distended, Other (palpable bladder) - Rectal Rectal: Other (normal rectal tone. no saddle anesthesia) - Back Back: No spinal TTP (No midline tenderness to palpation or percussion. No step- off or deformity) - Derm Derm: Warm and dry - Extremities Extremities: Other (Decreased sensation along the entirety of the left lower extremity. 3 out of 5 strength. Right lower extremity is normal. 2+ pulses B. ) - Neuro Neuro: Alert and oriented X 3 - Psych Psych: Normal mood, Normal affect Results - Vitals Vitals: Vital Signs - 24 hr 07/15/20 07/15/20 17:17 18:20 Temperature 37.2 C Heart Rate 87 86 Respiratory 16 16 Rate Blood Pressure 140/98 H 132/70 H O2 Saturation 94 99 Oxygen O2 Source Room air - Labs Labs: Laboratory Tests 07/15/20 07/15/20 07/15/20 17:33 17:36 17:36 WBC 19.6 H RBC 4.79 Hgb 15.2 Hct 45.0 MCV 93.9 MCH 31.7 H MCHC 33.8 RDW 13.5 Plt Count 279 MPV 9.8 Neut # (Auto) Not Reportable Lymph # (Auto) Not Reportable [place] # (Auto) Not Reportable Eos # (Auto) Not Reportable Baso # (Auto) Not Reportable Absolute Nucleated RBC Not Reportable Total Counted 100 Band Neuts % (Manual) 0 Abnorm Lymph % (Manual) 0 Nucleated RBC % Not Reportable Neutrophils # (Manual) 16.9 H Lymphocytes # (Manual) 1.2 L Monocytes # (Manual) 1.6 H Eosinophils # (Manual) 0.0 Basophils # (Manual) 0.0 Differential Comment MANUAL DIFFERENTIAL WBC Morphology NORMAL APPEARANCE Platelet Estimate NORMAL (130-450,000) Platelet Morphology NORMAL APPEARANCE RBC Morph Micro Appear NORMAL APPEARANCE ESR 4 Sodium Potassium Chloride Carbon Dioxide Anion Gap BUN Creatinine Estimated GFR (MDRD) Glucose Calcium Total Bilirubin AST ALT Alkaline Phosphatase C-Reactive Protein Total Protein Albumin Globulin Albumin/Globulin Ratio Urine Color YELLOW Urine Clarity CLEAR Urine pH 5.5 Ur Specific [place] 1.025 Urine Protein NEGATIVE Urine Glucose (UA) NEGATIVE Urine Ketones NEGATIVE Urine Occult Blood NEGATIVE Urine Nitrite NEGATIVE Urine Bilirubin NEGATIVE Urine Urobilinogen 0.2 (NORMAL) Ur Leukocyte Esterase NEGATIVE Ur Microscopic Review NOT INDICATED Urine Culture Comments NOT INDICATED 07/15/20 17:36 WBC RBC Hgb Hct MCV MCH MCHC RDW Plt Count MPV Neut # (Auto) Lymph # (Auto) [place] # (Auto) Eos # (Auto) Baso # (Auto) Absolute Nucleated RBC Total Counted Band Neuts % (Manual) Abnorm Lymph % (Manual) Nucleated RBC % Neutrophils # (Manual) Lymphocytes # (Manual) Monocytes # (Manual) Eosinophils # (Manual) Basophils # (Manual) Differential Comment WBC Morphology Platelet Estimate Platelet Morphology RBC Morph Micro Appear ESR Sodium 140 Potassium 3.3 L Chloride 102 Carbon Dioxide 25 Anion Gap 13.0 BUN 41 H Creatinine 0.8 Estimated GFR (MDRD) 95 Glucose 159 H Calcium 9.2 Total Bilirubin 0.5 AST 15 ALT 16 Alkaline Phosphatase 53 C-Reactive Protein < 1.0 Total Protein 6.8 Albumin 3.8 Globulin 3.0 Albumin/Globulin Ratio 1.3 Urine Color Urine Clarity Urine pH Ur Specific [place] Urine Protein Urine Glucose (UA) Urine Ketones Urine Occult Blood Urine Nitrite Urine Bilirubin Urine Urobilinogen Ur Leukocyte Esterase Ur Microscopic Review Urine Culture Comments PD MEDICAL DECISION MAKING - ED course Complexity details: reviewed old records, reviewed results, re-evaluated patient, considered differential, d/w patient ED course: Patient with physical exam findings very concerning for cauda equina. A Jovel catheter was placed and the bladder was drained. Given the urinary retention, new weakness to the left lower extremity patient will need an MRI. No MRI is available here. Discussed the case with Dr. Barrientos, emergency department physician at [facility] in [place] who graciously accepts in transfer. COBRA forms completed. Patient transferred. This document was made in part using voice recognition software. While efforts are made to proofread this document, sound alike and grammatical errors may occur. CT - L spine IMPRESSION: Lumbar spine without acute fracture. Multilevel, multifactorial lumbar spondylosis from L2-3 through L5-S1. Details as above. Findings are most severe at L5-S1 where combination of disc bulge, bilateral facet arthropathy, and ligamentum flavum hypertrophy result in moderate bilateral neural foraminal stenosis and minimal spinal canal stenosis. Departure - Departure Disposition: 02 Transfer Acute Care Hosp Clinical Impression: Urinary retention, Left leg weakness, Cauda equina compression Condition: Stable Discharge Date/Time: 07/15/20 18:22
--- OUTSIDE RECORDS SUMMARY | 2020-07-15 17:40 | EXTERNAL MEDICAL SUMMARY RPT | Continuity of Care Document ---
:1950 Demographics Phone Unavailable Preferred Language Unknown Marital Status Unknown Adventism Affiliation Unknown Race Unknown Ethnic Group Unknown Author Organization [facility] Address [address] [place] [address] Phone Social History date description facility [phone]
[2020-07-15 17:44] LABS: BASOPHILS % (AUTO) 0.2 %; EOSINOPHILS % (AUTO) 0.1 %; HGB - HEMOGLOBIN 15.2 g/dL (14.0-18.0); LYMPHOCYTES % (AUTO) 5.4 %; MEAN CORPUSCULAR HEMOGLOBIN 31.7 pg (27.0-31.0); MEAN CORPUSCULAR HGB CONC 33.8 g/dL (32.0-36.0); MEAN CORPUSCULAR VOLUME 93.9 fL (80.0-94.0); MEAN PLATELET VOLUME 9.8 fL (7.4-11.4); MONOCYTES % (AUTO) 8.4 %; NEUTROPHILS % (AUTO) 85.5 %; PLT - PLATELET COUNT 279 10^3/uL (130-450); RED BLOOD COUNT 4.79 10^6/uL (4.70-6.10); RED CELL DISTRIBUTION WIDTH 13.5 % (12.0-15.0); WHITE BLOOD COUNT 19.6 x10^3/uL (4.8-10.8)
[2020-07-15 17:46] LABS: ABNORMAL LYMPHS % (MANUAL) 0 %; BAND NEUTROPHILS % (MANUAL) 0 %
[2020-07-15 17:59] LABS: BILIRUBIN,URINE NEGATIVE (NEGATIVE); GLUCOSE, URINE (UA) NEGATIVE (NEGATIVE); KETONES,URINE (UA) NEGATIVE (NEGATIVE); LEUKOCYTE ESTERASE, URINE NEGATIVE (NEGATIVE); NITRITE,URINE NEGATIVE (NEGATIVE); OCCULT BLOOD,URINE NEGATIVE (NEGATIVE); PH,URINE 5.5 PH (5.0-7.5); PROTEIN,URINE NEGATIVE (NEGATIVE); UROBILINOGEN,URINE 0.2 (NORMAL) E.U./dL (NORMAL)
[2020-07-15 18:01] LABS: CLARITY,URINE CLEAR (CLEAR)
[2020-07-15 18:08] LABS: ALBUMIN 3.8 g/dL (3.2-5.5); ALBUMIN/GLOBULIN RATIO 1.3 (1.0-2.2); ALKALINE PHOSPHATASE 53 IU/L (42-121); ALT ALANINE AMINOTRANSFERASE 16 IU/L (10-60); AST ASPARTATE AMINOTRANSFERASE 15 IU/L (10-42); BILIRUBIN,TOTAL 0.5 mg/dL (0.2-1.0); BUN - BLOOD UREA NITROGEN 41 mg/dL (6-20); CALCIUM 9.2 mg/dL (8.5-10.3); CARBON DIOXIDE - CO2 25 mmol/L (21-32); CHLORIDE 102 mmol/L (101-111); CREATININE 0.8 mg/dL (0.6-1.2); GFR - MDRD 95 (>89); GLUCOSE 159 mg/dL (70-100); POTASSIUM 3.3 mmol/L (3.5-5.0); SODIUM 140 mmol/L (135-145); TOTAL PROTEIN 6.8 g/dL (6.7-8.2)
[2020-07-15 18:10] LABS: CRP - C-REACTIVE PROTEIN < 1.0 mg/dL (0-1.0)
[2020-07-15 18:36] VITALS: BP 132/70
[2020-07-15 18:50] LABS: LYMPHOCYTES # (MANUAL) 1.2 10^3/uL (1.5-3.5); LYMPHOCYTES % (MANUAL) 6 %; MONOCYTES # (MANUAL) 1.6 10^3/uL (0.0-1.0); NEUTROPHILS # (MANUAL) 16.9 10^3/uL (1.5-6.6); PLATELET ESTIMATE, MANUAL NORMAL (130-450,000) (NORMAL); PLATELET MORPHOLOGY NORMAL APPEARANCE (NORMAL); RBC MORPHOLOGY (MULTIPLE) NORMAL APPEARANCE (NORMAL); WBC MORPHOLOGY (MULTIPLE) NORMAL APPEARANCE (NORMAL)
[2020-07-15 18:51] LABS: DIFFERENTIAL COMMENT MANUAL DIFFERENTIAL
--- NOTE | 2020-07-15 19:12 | CT Report ---
PROCEDURE: LUMBAR SPINE WO INDICATIONS: L leg weakness, urinary retention TECHNIQUE: Noncontrast 3 mm thick sections acquired from the T12 level to the sacrum. Sagittal and coronal refo rmats were constructed. For radiation dose reduction, the following was used: automated exposure co ntrol, adjustment of mA and/or kV according to patient size. COMPARISON: Lumbar spine series dated 06/16/2020 FINDINGS: Image quality: Excellent. Bones: There is normal bony alignment. No acute vertebral body compression fractures. No suspiciou s lytic or blastic bony lesions. Central spinal caliber is of normal overall caliber. No pars defec ts. T12-L1: Normal in appearance. L1-L2: Normal in appearance. L2-L3: Disc bulge. Ligamentum flavum hypertrophy. No significant neural foraminal or spinal canal stenosis. L3-L4: Disc bulge. Bilateral facet arthropathy. Ligamentum flavum hypertrophy. Mild bilateral neura l foraminal narrowing. No significant spinal canal stenosis. L4-L5: Disc bulge. Bilateral facet arthropathy. Ligamentum flavum hypertrophy. Mild-moderate bilate ral neural foraminal narrowing. No significant spinal canal stenosis. L5-S1: Disc bulge. Moderate bilateral facet arthropathy. Ligamentum flavum hypertrophy. Moderate bi lateral neural foraminal stenosis. Minimal spinal canal stenosis. Soft tissues: No retroperitoneal masses or hematomas. Visualized aorta is normal in caliber. Extens slime atherosclerotic calcifications. IMPRESSION: Lumbar spine without acute fracture. Multilevel, multifactorial lumbar spondylosis from L2-3 through L5-S1. Details as above. Findings are most severe at L5-S1 where combination of disc bulge, bilateral facet arthropathy, and ligamentum fl avum hypertrophy result in moderate bilateral neural foraminal stenosis and minimal spinal canal sten osis. Reviewed by: Luis Eduardo Ragsdale MD on 07/15/2020 6:11 PM MEGAN Approved by: Luis Eduardo Ragsdale MD on 07/15/2020 6:11 PM [id number] Station ID: [id number]
== END 2020-07-15 18:22 | disposition short-term general hospital (02) ==
LOC: EDUNIT# → SUPCPDRO 17:07 → ED 17:07
DX: M51.27 Other intervertebral disc displacement, lumbosacral region (principal); M47.817 Spondylosis without myelopathy or radiculopathy, lumbosacral region; R20.0 Anesthesia of skin; R29.898 Other symptoms and signs involving the musculoskeletal system; G83.4 Cauda equina syndrome; R33.9 Retention of urine, unspecified; I10 Essential (primary) hypertension; Z86.73 Personal history of transient ischemic attack (TIA), and cerebral infarction without residual deficits; Z79.82 Long term (current) use of aspirin; F17.200 Nicotine dependence, unspecified, uncomplicated
CPT/HCPCS: 36415; 80053; 81001; 81003; 85025; 85651; 86140; 87086; 99284; 99285

== ENCOUNTER 2020-07-15 18:24 | Outpatient (CLI) | payer MEDICARE, OTHER | END 2020-07-15 18:25 | disposition short-term general hospital (02) | LOC: EMS 18:24 | PROVIDERS: ATTEND Emergency Medicine | DX: G83.4 Cauda equina syndrome (principal); Z74.01 Bed confinement status | CPT/HCPCS: A0425; A0428 ==

== ENCOUNTER 2020-09-05 05:06 | Emergency (ER) | payer MEDICARE, OTHER ==
--- OUTSIDE RECORDS SUMMARY | 2020-09-05 05:10 | EXTERNAL MEDICAL SUMMARY RPT | Continuity of Care Document ---
:1950 Demographics Phone Unavailable Preferred Language Unknown Marital Status Unknown Congregation Affiliation Unknown Race Unknown Ethnic Group Unknown Author Organization [facility] Address [address] [place] [address] Phone Allergies Encounters Medications Problems Results
[2020-09-05 05:14] VITALS: BP 163/94
--- OUTSIDE RECORDS SUMMARY | 2020-09-05 05:14 | EXTERNAL MEDICAL SUMMARY RPT | Continuity of Care Document ---
:1950 Demographics Phone Unavailable Preferred Language Unknown Marital Status Unknown Sikh Affiliation Unknown Race Unknown Ethnic Group Unknown Author Organization [facility] Address [address] [place] [address] Phone Allergies Encounters Medications Problems Results
--- NOTE | 2020-09-05 05:16 | ED Physician Documentation ---
PD HPI URI - Stated complaint Stated Complaint: FEVER - Chief complaint Chief Complaint: Fever - History obtained from History obtained from: Patient - History of Present Illness Timing - onset: Today (awoke this morning with feeling of feverish and aches. took temp and it was mildly elevated to 100.4. 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 Chemo last was 2 weeks ago.) Timing details: Abrupt onset, Still present (not feeling feverish now but still mild nausea.) Associated symptoms: Fever, Chills, Nasal congestion (ongoing, not recent). No: Sinus pain, Sore throat, Swollen nodes, Dry cough, Dyspnea Contributing factors: Immunocompromised. No: Sick contact, Travel, Unimmunized (COVID vaccine 2 series, in May without notable reactions.) Similar symptoms before: Has not had sx before Recently seen: Clinic (chemo about 2 weeks ago. 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 No drainage from the site.) Review of Systems Constitutional: reports: Fever (just this morning. [place] okay yesterday.), Chills, Fatigue (ongoing). denies: Myalgias Nose: reports: Congestion. denies: Rhinorrhea / runny nose, Sinus pressure / pain Throat: denies: Sore throat Cardiac: denies: Chest pain / pressure Respiratory: denies: Dyspnea, Cough GI: reports: Nausea. denies: Vomiting, Diarrhea, Bloody / black stool : denies: Hematuria, Flaherty Problem (has had flaherty for couple months. Recently changed last week routinely. No problems with the drainage.) Skin: denies: Rash Musculoskeletal: reports: Back pain (ongoing back pain from bone mets.) Neurologic: reports: Numbness (left leg from nerve impingement from spine mets. Improved symptoms after radiation treatment to spine in June.). denies: Headache Psychiatric: denies: Depressed, Anxiety Endocrine: denies: Weight loss Immunocompromised: reports: Immunocompromised, Chemotherapy PD PAST MEDICAL HISTORY - Past Medical History Cardiovascular: Hypertension Respiratory: Other (primary lung cancer) Neuro: CVA Endocrine/Autoimmune: None GI: None : None HEENT: Other Psych: None Musculoskeletal: None Derm: Other - Past Surgical History Past Surgical History: Yes HEENT: Cataracts, Other - Present Medications Home Medications: Ambulatory Orders Medication Instructions Recorded Confirmed Metoprolol Tartrate 50 mg PO DAILY 03/07/13 09/05/20 Pravastatin Sodium 20 mg PO QPM 03/07/13 09/05/20 Amlodipine Besylate 10 mg PO DAILY 11/19/18 09/05/20 Aspirin [Aspirin EC] 81 mg PO DAILY 11/19/18 09/05/20 Clopidogrel Bisulfate [Clopidogrel] 75 mg PO DAILY 11/19/18 09/05/20 EPINEPHrine [Epinephrine] 0.3 mg IJ ONCE PRN 11/19/18 09/05/20 Tamsulosin HCl [Flomax] 0.4 mg PO DAILY 11/19/18 09/05/20 lisinopriL [Lisinopril] 40 mg PO DAILY 11/19/18 09/05/20 HYDROcod/ACETAM 5/325 [Arco 5/325] 1 - 2 ea PO Q6H PRN #14 tablet 06/08/20 09/05/20 Gabapentin [Neurontin] 300 mg PO TID #60 cap 07/09/20 09/05/20 Prochlorperazine [Compazine] 10 mg PO DAILY 09/05/20 09/05/20 - Allergies Allergies/Adverse Reactions: Allergies Allergy/AdvReac Type Severity Reaction Status Date / Time venom-honey bee Allergy Anaphylaxis Verified 09/05/20 05:10 [bee venom (honey bee)] simvastatin AdvReac Cramps Verified 09/05/20 05:10 - Social History Does the pt smoke?: Yes Smoking Status: Current every day smoker Does the pt drink ETOH?: Yes Does the pt have substance abuse?: No PD ED PE NORMAL - Vitals Vital signs reviewed: Yes - General General: Alert and oriented X 3, Well developed/nourished - HEENT HEENT: Moist mucous membranes, Pharynx benign, Dentition benign, Other (left cheek with vertical sutured wound, no drainage. Mild redness at edges of the wound. Not tender. ) - Neck Neck: Supple, no meningeal sign, No adenopathy - Cardiac Cardiac: RRR, No murmur - Respiratory Respiratory: Clear bilaterally, Other (right upper chest port site without redness nor swelling. ) - Abdomen Abdomen: Normal bowel sounds, Soft, Non distended, No organomegaly, Other (minimal tender without guarding left lower abd. No percussion tenderness. No rash. ) - Male Male : Deferred, Other (flaherty leg bag with clear urine drainage. ) - Rectal Rectal: Deferred - Back Back: No CVA TTP - Derm Derm: Normal color, Warm and dry - Extremities Extremities: No edema, No calf tenderness / cord - Neuro Neuro: Alert and oriented X 3, No motor deficit, Normal speech Results - Vitals Vitals: Vital Signs - 24 hr 09/05/20 09/05/20 05:10 05:13 Temperature 37.1 C 37.1 C Heart Rate 86 86 Respiratory 16 16 Rate Blood Pressure 163/94 H 163/94 H O2 Saturation 96 96 Oxygen O2 Source Room air - Labs Labs: Laboratory Tests 09/05/20 09/05/20 09/05/20 05:55 05:55 05:55 WBC 4.0 L RBC 3.88 L Hgb 12.4 L Hct 36.9 L MCV 95.1 H MCH 32.0 H MCHC 33.6 RDW 13.6 Plt Count 309 MPV 8.8 Neut # (Auto) 2.0 Lymph # (Auto) 0.9 L [place] # (Auto) 0.9 Eos # (Auto) 0.1 Baso # (Auto) 0.0 Absolute Nucleated RBC 0.00 Nucleated RBC % 0.0 Sodium 139 Potassium 3.8 Chloride 103 Carbon Dioxide 25 Anion Gap 11.0 BUN 11 Creatinine 0.9 Estimated GFR (MDRD) 83 L Glucose 111 H Lactic Acid 1.0 Calcium 8.7 Total Bilirubin 0.5 AST 13 ALT 15 Alkaline Phosphatase 72 Total Protein 6.5 L Albumin 3.2 Globulin 3.3 Albumin/Globulin Ratio 1.0 Lipase 31 Urine Color Urine Clarity Urine pH Ur Specific [place] Urine Protein Urine Glucose (UA) Urine Ketones Urine Occult Blood Urine Nitrite Urine Bilirubin Urine Urobilinogen Ur Leukocyte Esterase Urine RBC Urine WBC Ur Squamous Epith Cells Urine Bacteria Urine Mucus Ur Microscopic Review Urine Culture Comments 09/05/20 06:00 WBC RBC Hgb Hct MCV MCH MCHC RDW Plt Count MPV Neut # (Auto) Lymph # (Auto) [place] # (Auto) Eos # (Auto) Baso # (Auto) Absolute Nucleated RBC Nucleated RBC % Sodium Potassium Chloride Carbon Dioxide Anion Gap BUN Creatinine Estimated GFR (MDRD) Glucose Lactic Acid Calcium Total Bilirubin AST ALT Alkaline Phosphatase Total Protein Albumin Globulin Albumin/Globulin Ratio Lipase Urine Color YELLOW Urine Clarity CLEAR Urine pH 6.0 Ur Specific [place] 1.025 Urine Protein NEGATIVE Urine Glucose (UA) NEGATIVE Urine Ketones NEGATIVE Urine Occult Blood NEGATIVE Urine Nitrite POSITIVE H Urine Bilirubin NEGATIVE Urine Urobilinogen 0.2 (NORMAL) Ur Leukocyte Esterase SMALL H Urine RBC None Seen Urine WBC 6-10 H Ur Squamous Epith Cells NONE SEEN Urine Bacteria Few Urine Mucus Few Strands Ur Microscopic Review INDICATED Urine Culture Comments INDICATED PD MEDICAL DECISION MAKING - ED course Complexity details: considered differential (post chemo couple weeks ago, so likely neutrophils/WBC are okay by now, but will check counts to see if neutropenic. Then will look for significant source for fever with labs/CXR/UA/Resp panel.), d/w patient, d/w family () ED course: Care to Dr. Jaramillo at [facility], pending labs. So far, not neutropenic, so good there. Possible UTI, which is reasonably treated as symptomatic. Other Not appearing septic. Resp PCR pending. Some labs pending. Departure - Departure Clinical Impression: Lung cancer metastatic to bone, Status post chemotherapy Fever Qualifiers: Fever type: unspecified Qualified Code(s): R50.9 - Fever, unspecified UTI (urinary tract infection) Qualifiers: Urinary tract infection type: catheter-associated UTI Indwelling urinary catheter type: indwelling urethral catheter Encounter type: initial encounter Qualified Code(s): T83.511A - Infection and inflammatory reaction due to indwelling urethral catheter, initial encounter; N39.0 - Urinary tract infection, site not specified Clinical Impression: (Ruled Out): Febrile neutropenia Condition: Stable Record reviewed to determine appropriate education?: Yes
[2020-09-05] MEDS ORDERED: SODIUM CHLORIDE 0.9% 1,000 ML IV STA (05:35)
[2020-09-05] MEDS ORDERED: ONDANSETRON 4 MG/2 ML VIAL IVP STA ×2 (05:35→07:33)
[2020-09-05 06:11] LABS: BILIRUBIN,URINE NEGATIVE (NEGATIVE); CLARITY,URINE CLEAR (CLEAR); GLUCOSE, URINE (UA) NEGATIVE (NEGATIVE); KETONES,URINE (UA) NEGATIVE (NEGATIVE); LEUKOCYTE ESTERASE, URINE SMALL (NEGATIVE); NITRITE,URINE POSITIVE (NEGATIVE); OCCULT BLOOD,URINE NEGATIVE (NEGATIVE); PROTEIN,URINE NEGATIVE (NEGATIVE); UROBILINOGEN,URINE 0.2 (NORMAL) E.U./dL (NORMAL)
[2020-09-05 06:13] LABS: BASOPHILS % (AUTO) 0.3 %; EOSINOPHILS # (AUTO) 0.1 10^3/uL (0.0-0.7); EOSINOPHILS % (AUTO) 2.8 %; HCT - HEMATOCRIT 36.9 % (42.0-52.0); HGB - HEMOGLOBIN 12.4 g/dL (14.0-18.0); LYMPHOCYTES # (AUTO) 0.9 10^3/uL (1.5-3.5); LYMPHOCYTES % (AUTO) 22.2 %; MEAN CORPUSCULAR HGB CONC 33.6 g/dL (32.0-36.0); MEAN CORPUSCULAR VOLUME 95.1 fL (80.0-94.0); MEAN PLATELET VOLUME 8.8 fL (7.4-11.4); MONOCYTES # (AUTO) 0.9 10^3/uL (0.0-1.0); MONOCYTES % (AUTO) 23.2 %; NEUTROPHILS % (AUTO) 51.2 %; PLT - PLATELET COUNT 309 10^3/uL (130-450); RED BLOOD COUNT 3.88 10^6/uL (4.70-6.10); RED CELL DISTRIBUTION WIDTH 13.6 % (12.0-15.0)
[2020-09-05 06:19] LABS: BACTERIA,URINE Few /HPF (None Seen); MUCUS,URINE Few Strands; RBC,URINE None Seen /HPF (0-5); SQUAMOUS EPITHELIAL CELL,UR NONE SEEN (<= Few)
[2020-09-05 06:20] LABS: ALBUMIN 3.2 g/dL (3.2-5.5); BILIRUBIN,TOTAL 0.5 mg/dL (0.2-1.0); CALCIUM 8.7 mg/dL (8.5-10.3); CREATININE 0.9 mg/dL (0.6-1.2); POTASSIUM 3.8 mmol/L (3.5-5.0); TOTAL PROTEIN 6.5 g/dL (6.7-8.2)
[2020-09-05] MEDS ORDERED: cefTRIAXone 1 GM in SODIUM CHLORIDE 0.9% MINIBAG 100 ML IV STA (06:28)
[2020-09-05] MEDS ORDERED: cefTRIAXone 1 GM VIAL ONE (06:32)
--- NOTE | 2020-09-05 07:09 | ED Physician Documentation ---
ED Addendum - Addendum Addendum: 70-year-old male with a history of lung cancer with mets to his spine has a Jovel catheter placed since 07/15/2020 when cauda equina syndrome developed and he developed urinary retention. He has developed a fever overnight 2 weeks after his most recent chemotherapy. He was symptomatic with nausea fever and chills. On work-up here today there is no evidence of neutropenia. The patient is afebrile here. He has a Jovel catheter in place and there is evidence of infection with nitrites, leukocyte esterase, 6-10 white blood cells per high- power field and bacteria in a specimen that meets the grade for culture. The patient is treated for this Jovel catheter associated infection with intravenous Rocephin and we will place him on a course of Keflex. 09/05/20 07:09
[2020-09-05 07:19] LABS: CORONAVIRUS 229E-RESP PCR NOT DETECTED; CORONAVIRUS HKU1-RESP PCR NOT DETECTED; CORONAVIRUS NL63-RESP PCR NOT DETECTED; CORONAVIRUS OC43-RESP PCR NOT DETECTED; HUMAN METAPNEUMOVIRUS NOT DETECTED; RHINOVIRUS/ENTEROVIRUS NOT DETECTED; SARS-CoV-2 -RESP PCR PANEL NOT DETECTED
[2020-09-05 07:20] LABS: B. PARAPERTUSSIS- RESP PCR PAN NOT DETECTED; B. PERTUSSIS- RESP PCR PANEL NOT DETECTED; C. PNEUMONIAE- RESP PCR PANEL NOT DETECTED; INFLUENZA A- RESP PCR PANEL NOT DETECTED; INFLUENZA B - RESP PCR PANEL NOT DETECTED; M. PNEUMONIAE- RESP PCR PANEL NOT DETECTED; PARAINFLUENZA VIRUS 1 NOT DETECTED; PARAINFLUENZA VIRUS 2 NOT DETECTED; PARAINFLUENZA VIRUS 3 NOT DETECTED; PARAINFLUENZA VIRUS 4 NOT DETECTED; RSV- RESP PCR PANEL NOT DETECTED
--- NOTE | 2020-09-05 14:50 | XRAY Report ---
PROCEDURE: Chest 1 View X-Ray INDICATIONS: chest pain TECHNIQUE: One view of the chest was acquired. COMPARISON: 06/08/2020 FINDINGS: Surgical changes and devices: A right-sided chest port has been placed, with the tip overlying the in ferior aspect of the superior vena cava, approximately 1 cm above the cavoatrial junction. Lungs and pleura: No pleural effusions or pneumothorax. Stable nodular opacity can be seen involving the right midlung. Mediastinum: The aorta is prominent and tortuous. The cardiac contours are within normal limits. Bones and chest wall: No suspicious bony lesions. Overlying soft tissues appear unremarkable. IMPRESSION: Stable right midlung nodular opacity, differential diagnosis includes mass or infection. This is miladis lar to the prior plain film. If it would be helpful for clinical management decision making, please consider a dedicated chest CT with IV contrast for further evaluation. Note: No significant discrepancy from the preliminary report. Reviewed by: Martin Hernandez MD on 09/05/2020 1:49 PM [facility] Approved by: Martin Hernandez MD on 09/05/2020 1:49 PM AKDT Station ID: [id number]
== END 2020-09-05 08:17 | disposition home or self-care (01) ==
LOC: ED 05:06
DX: T83.511A Infection and inflammatory reaction due to indwelling urethral catheter, initial encounter (principal); Y84.6 Urinary catheterization as the cause of abnormal reaction of the patient, or of later complication, without mention of misadventure at the time of the procedure; R50.81 Fever presenting with conditions classified elsewhere; R11.0 Nausea; Z20.822 Contact with and (suspected) exposure to COVID-19; C34.90 Malignant neoplasm of unspecified part of unspecified bronchus or lung; C79.51 Secondary malignant neoplasm of bone; G83.4 Cauda equina syndrome; I10 Essential (primary) hypertension; Z86.73 Personal history of transient ischemic attack (TIA), and cerebral infarction without residual deficits; Z79.02 Long term (current) use of antithrombotics/antiplatelets; Z79.82 Long term (current) use of aspirin; F17.200 Nicotine dependence, unspecified, uncomplicated
CPT/HCPCS: 0202U; 36415; 80053; 81001; 81003; 83605; 83690; 85025; 87040; 87086; 96365; 96375; 96376; 99283

== ENCOUNTER 2020-09-11 06:33 | Outpatient (CLI) | payer MEDICARE, OTHER | END 2020-09-11 06:34 | disposition E | LOC: EMS 06:33 | DX: I46.9 Cardiac arrest, cause unspecified (principal) | CPT/HCPCS: A0425; A0429 ==